=== PATIENT | female | born 1965 | race Caucasian/White ===

== ENCOUNTER 2017-09-30 13:57 | Outpatient (CLI) | payer BC, MEDICARE ==
--- NOTE | 2017-10-01 14:35 | MRI ---
MRI CERVICAL SPINE WITHOUT CONTRAST: Date: 09/30/17 INDICATION: Chronic neck pain with radiation to both shoulders without history of injury. COMPARISON: CT of cervical spine dated 10/02/16. FINDINGS: The examination was submitted for interpretation on 10/01/17. The visualized aspects of the posterior fossa appear within normal limits. Craniocervical junction appears within normal limits. At C2-C3, there is mild facet joint degenerative change without appreciable central canal or neural f oraminal narrowing. At C3-4, there is mild facet joint degenerative change without appreciable central canal or neural fo raminal narrowing. At C4-5, there is a broad based bulge with uncovertebral hypertrophy without appreciable neural barby inal narrowing. There is mild effacement of the ventral subarachnoid space without definite cord comp ression. At C5-6, there is a broad based bulge with uncovertebral hypertrophy inducting mild bilateral neural foraminal narrowing and mild central canal narrowing. At C6-7, there is a broad based bulge with uncovertebral hypertrophy inducing mild bilateral neural f oraminal narrowing, right greater than left. At C7-T1, there is a broad based bulge with bilateral facet joint degenerative change without appreci able central canal or neural foraminal narrowing. IMPRESSION: 1. Multilevel spondylosis of the cervical spine, most pronounced at C4-5 through C7-T1. 2. Mild neural foraminal narrowing seen at C5-6 and C6-7. POS: [facility]
--- NOTE | 2017-10-01 15:23 | MRI ---
MRI OF THE LUMBAR SPINE WITH AND WITHOUT IV CONTRAST: Date: 09/30/17 HISTORY: Diagnosis code of M54.5 with chronic back pain for 3 years and history of L4-5 fusion in 1983. TECHNIQUE: Multiplanar, multisequence MR images were obtained of the lumbar spine with and without contrast. Kimberly arana received 15 mL of MultiHance for the exam. Comparisons made with the prior CT lumbar myelogram dated 09/10/05. FINDINGS: The previously seen L4-5 posterolateral interbody construct has been near completely removed. There i s a retained pedicle screw within the left aspect of L4. There is posterolateral bone graft seen from L4 through S1 bilaterally. The conus is seen to terminate at approximately the superior aspect of L2. There is subtle lumbarizat ion of S1. No acute fracture is evident. At L5-S1 level, there is no appreciable central canal or neural foraminal narrowing. At L4-5 level, there is a broad based bulge without appreciable central canal or neural foraminal margo rowing. At L3-4, there is facet hypertrophy and a mild broad based bulge without appreciable central canal or neural foraminal narrowing. At L2-3, there is slight retrolisthesis of L2 on L3 with facet joint degenerative change. There is a broad based bulge. There is a superimposed left foraminal protrusion that encroaches on the inferior aspect of the neural foramina without definite impingement of the exiting left L2 nerve root. At L1-L2, there is no appreciable central canal or neural foraminal narrowing. At T12-L1, there is no appreciable central canal or neural foraminal narrowing. There is some very subtle enhancement of the neural foramina involving the lower lumbar spine which i s suspicious for changes of a mild arachnoiditis. IMPRESSION: 1. Interval revision of the hardware at L4-5 with retained pedicle screw seen at the left L4 pedicle . 2. Adjacent segment degeneration at L3-4 appears similar. 3. Small foraminal disc protrusion seen at left L2-3 was likely present on the comparison examinatio n and is stable causing mild left neural foraminal narrowing. 4. Some mild enhancement of nerve roots involving the lower lumbar spine, particularly on image 49 o f series 10 suspicious for mild arachnoiditis. POS: [facility]
== END 2017-09-30 13:58 | disposition home or self-care (01) ==
LOC: SCSMRI 13:57
PROVIDERS: ATTEND Family Medicine
DX: M47.892 Other spondylosis, cervical region (principal); M47.893 Other spondylosis, cervicothoracic region; M54.2 Cervicalgia; M54.5 Low back pain
CPT/HCPCS: 72141; 72158

== ENCOUNTER 2017-12-30 13:25 | Outpatient (CLI) | payer BC, MEDICARE ==
--- NOTE | 2017-12-30 13:48 | RAD ---
CHEST PA AND LATERAL: History: 52-year-old female with history of cough, left rib pain. FINDINGS: Heart size is within normal limits. The lungs are clear. There is no confluent pneumonia, overt edema or pleural effusion. There is some mild chronic increased markings bilaterally. Mild biapical pleura l thickening. IMPRESSION: No acute intrathoracic disease. No evidence for pneumonia. POS: [facility]
== END 2017-12-30 13:26 | disposition home or self-care (01) ==
LOC: SCSRAD 13:25
PROVIDERS: ATTEND Family Medicine
DX: R05 Cough (principal); R07.81 Pleurodynia
CPT/HCPCS: 71046

== ENCOUNTER 2018-07-14 09:25 | Outpatient (CLI) | payer BC, MEDICARE ==
--- NOTE | 2018-07-14 10:15 | RAD ---
THORACIC SPINE THREE VIEWS: History: 53-year-old female with history of chronic pain, particularly the last two weeks. FINDINGS: Generalized thoracic spine spondylosis. No acute fracture or dislocation or significant malalignment. IMPRESSION: Thoracic spine spondylosis without other acute process. POS: [facility]
--- NOTE | 2018-07-14 11:36 | RAD ---
LUMBAR SPINE TWO VIEWS: History: 53-year-old female with history of chronic back pain with muscle spasms for the past several weeks. P rior surgery on the lumbar spine x7. FINDINGS: Laminectomy and fusion changes of the lower lumbar spine. Generalized disc desiccation changes and di sc osteophytosis. No significant malalignment. No acute compression fracture. IMPRESSION: Lumbar spondylosis with extensive post-operative changes of the lower lumbar spine without significan t malalignment or acute fracture. POS: [facility]
--- NOTE | 2018-07-14 11:44 | RAD ---
CERVICAL SPINE THREE VIEWS: History: 53-year-old female with history of chronic back pain and neck pain. FINDINGS: Disc osteophytosis noted, particularly at C4-5, C5-6 and C6-7 with very mild anterolisthesis of C4 on C5. No significant prevertebral soft tissue swelling. Tip of the odontoid and portions of C1 are obs cured on the AP open mouth view. IMPRESSION: Cervical spondylosis. No acute fracture or dislocation involving the visualized cervical spine. Deperic tillman upon concern, additional imaging with CT or MRI study might give additional information in regar d to the cervical, lumbar, or thoracic spines. POS: [facility]
== END 2018-07-14 09:26 | disposition home or self-care (01) ==
LOC: SCSRAD 09:25
PROVIDERS: ATTEND Physician Assistant Medical
DX: M54.9 Dorsalgia, unspecified (principal); G89.29 Other chronic pain; M47.892 Other spondylosis, cervical region; M47.896 Other spondylosis, lumbar region; M47.894 Other spondylosis, thoracic region; Z98.1 Arthrodesis status
CPT/HCPCS: 72040; 72072; 72100

== ENCOUNTER 2019-03-16 13:04 | Outpatient (CLI) | payer MEDICARE ==
[~2019-03-16 13:04] MED LIST: Gadobenate Dimeglumine 529 MG/1 ML (20ML VIAL) ONE
--- NOTE | 2019-03-16 16:51 | MRI ---
MRI ABDOMEN WITH AND WITHOUT IV CONTRAST: (MR Enterography) 03/16/19 HISTORY: Lower abdominal pain. Crohn's disease. FINDINGS: The liver, spleen, pancreas, adrenal glands, kidneys and gallbladder are normal. The patient is post hysterectomy. No free fluid or lymphadenopathy is seen in the abdomen or pelvis. There are postop monie nges in the lower lumbar spine. The small bowel loops are not abnormally dilated. No significant wall thickening is seen in the term inal ileum. No abnormally loculated fluid collection is seen to suggest abscess formation. No abnorma l post contrast enhancement is seen. IMPRESSION: Normal exam. This exam was interpreted in consultation with Dr Azam Gilman who concurs. POS: [facility]
== END 2019-03-16 13:05 | disposition home or self-care (01) ==
LOC: MRI 13:04
PROVIDERS: ATTEND Internal Medicine Gastroenterology
DX: Z12.11 Encounter for screening for malignant neoplasm of colon (principal); K59.00 Constipation, unspecified; R10.30 Lower abdominal pain, unspecified; R19.7 Diarrhea, unspecified
CPT/HCPCS: 74183; J1610; A9577

== ENCOUNTER 2019-05-31 11:47 | Outpatient (CLI) | payer MEDICARE ==
--- NOTE | 2019-05-31 13:05 | MRI ---
MRI Pelvis WO Con History: M [age] low back pain Comparison: None. Findings: Bones: There is osseous fusion of the enlarged right L5 transverse process with the sacrum. There is a large left L5 transverse process which has anomalous articulation with the sacrum. There is no significant effusion within the SI joints. Moderate narrowing of the pubic symphysis with erosion of the central articular disc. Hypertrophic osteophyte formation. Susceptibility and bone graft harvest of both ilium. Exiting sacral nerve roots appear normal. Intrapelvic soft tissues: Unremarkable. Muscles: Low-grade asymmetric bulk of the piriformis muscles with the right slightly larger than the left. Visualized iliopsoas tendons are intact. Impression: 1. 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 Lumbosacral transitional vertebra can be a source of chronic low back pain. 2. Low-grade degenerative changes of the SI joints without erosions. 3. Chronic degenerative pubic symphysitis. 4. Low-grade asymmetric decreased bulk left piriformis muscle relative to the right.
== END 2019-05-31 11:48 | disposition home or self-care (01) ==
LOC: SCSMRI 11:47
PROVIDERS: ATTEND Internal Medicine
DX: M54.5 Low back pain (principal); M86.9 Osteomyelitis, unspecified
CPT/HCPCS: 72195

== ENCOUNTER 2019-09-10 09:43 | Outpatient (CLI) | payer MEDICARE ==
--- NOTE | 2019-09-10 10:47 | MRI ---
MRI CERVICAL SPINE WITHOUT CONTRAST: HISTORY: Spondylosis with radiculopathy. Chronic neck pain, radiating down the right shoulder x1 year.. COMPARISON: 09/30/2017. FINDINGS: Appropriate T1 marrow signal intensity of the cervical vertebrae. Cervical spine vertebral body heigh t is maintained. No fracture. Straightening of normal cervical lordosis, unchanged from the previous examination. No significant STIR hyperintensity to suggest vertebral body edema or ligamento us injury. Visualized brain parenchyma, cervicomedullary junction, cervical cord and the upper thoracic cord hav e a normal size and signal intensity. Spondylolisthesis: 1.2 mm of anterolisthesis of C3 upon C4, unchanged. C2-C3: No significant central canal stenosis or significant neural foraminal narrowing. C3-C4: No significant central canal stenosis. Moderate right foraminal narrowing due to uncovertebral hypertrophy. Mild left foraminal narrowing due to uncovertebral hypertrophy. There has been progression of right neural foraminal narrowing compared to the previous examination. Worsening hyper trophic changes of the uncovertebral joint and right facet. Left neural foramen is patent. C4-C5: Broad-based disc-osteophyte complex makes contact with the thecal sac. Minimal deformity of th e midline cervical cord. Stable mild central canal stenosis. Bilaterally the neural foramina are patent. C5-C6: Broad-based disc bulge without significant central canal stenosis. Bilaterally the neural fora bridger are patent. C6-C7: No significant central canal stenosis. Mild right neural foramen due to uncovertebral hypertro phy. The left neural foramen is patent. Stable right neural foraminal narrowing. C7-T1: Central disc protrusion abuts the thecal sac. No significant central canal stenosis. Right gay ral foramen is patent. Mild left neural foraminal narrowing due to uncovertebral hypertrophy a stable. IMPRESSION: Changes of the cervical spine as detailed above. Worsening right neural foraminal narrowing at C3-C4. Transcribed Date/Time: 09/10/2019 11:19 AM
== END 2019-09-10 09:44 | disposition home or self-care (01) ==
LOC: SCSMRI 09:43
PROVIDERS: ATTEND Nurse Practitioner Family
DX: M47.22 Other spondylosis with radiculopathy, cervical region (principal); M48.02 Spinal stenosis, cervical region
CPT/HCPCS: 72141